=== PATIENT | male | born 1990 | race Caucasian/White ===

== ENCOUNTER 2016-05-27 20:37 | Emergency (ER) | payer OTHER ==
[~2016-05-27] VITALS: Ht 172.7 cm; Wt 131.5 kg
[~2016-05-27 20:37] MED LIST: ALBUTEROL0.09 MG/A1 INH; AUGMENTIN 875 M1 TAB PO; PREDNISONE50 MG PO
--- NOTE | 2016-05-27 21:31 | ED INFLUENZA/URI COMPLAINT ---
History of Present Illness General Chief Complaint: General Adult Stated Complaint: COUGHING ATTACK PER PT Source: patient Exam Limitations: no limitations Vital Signs & Intake/Output Vital Signs & Intake/Output Vital Signs Date Time Temp Pulse Resp B/P Pulse O2 O2 Flow FiO2 Ox Delivery Rate 05/279 98.3 97 18 136/73 96 Room Air 05/278 100 05/27 2041 97.9 110 22 152/83 98 Room Air ED Intake and Output 05/28 0000 05/27 1200 Intake Total Output Total Balance Patient 290 lb Weight Allergies Coded Allergies: NO KNOWN ALLERGIES (04/24/15) Reconcile Medications Albuterol Sulfate (Albuterol Sulfate Hfa) 0.09 MG/Actuation CEDRIC 2 PUFF INH Q4- 6 PRN PRN SHORTNESS OF BREATH 90 MCG PER PUFF Albuterol Sulfate (Ventolin Hfa) 90 MCG HFA.AER.AD 2 PUF INH Q4-6 PRN PRN wheezing Amoxicillin/Potassium Clav (Augmentin 875-125 Tablet) 875 MG-125 MG TABLET 1 TAB PO BID bronchitis Prednisone 50 MG TABLET 1 TAB PO DAILY bronchitis Triage Note: PER PT STARTED WITH COUGH YESTERDAY GET COUGHING AND VOMITS, TODAY HURTS TO BREATHE, PAIN TO BACK WHEN COUGHING Triage Nurses Notes Reviewed? yes Onset: Gradual Duration: day(s): Timing: single episode today Severity: moderate Prior Episodes/Possible Cause: occassional episodes Modifying Factors: Improves With: rest. Associated Symptoms: cough, wheezing HPI: 26-year-old gentleman, history of cigarette smoking, presents with cough for the past 23 days. He states that the cough began, along with wheeze, in the context of mild cold-like symptoms. He has no fever chills shortness of breath nausea vomiting diarrhea or chest pain. Past History Travel History Traveled to [place] past 21 day No Medical History Any Pertinent Medical History? 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 No Review of Systems Review of Systems Constitutional: Reports: no symptoms. EENTM: Reports: no symptoms. Respiratory: Reports: no symptoms. Cardiovascular: Reports: no symptoms. GI: Reports: no symptoms. Genitourinary: Reports: no symptoms. Musculoskeletal: Reports: no symptoms. Skin: Reports: no symptoms. Neurological/Psychological: Reports: no symptoms. Hematologic/Endocrine: Reports: no symptoms. Immunologic/Allergic: Reports: no symptoms. All Other Systems: Reviewed and Negative Physical Exam Physical Exam General Appearance: well developed/nourished, no apparent distress, alert, comfortable Head: atraumatic, normal appearance Eyes: Bilateral: normal appearance. Ears, Nose, Throat: normal ENT inspection, moist mucous membrane Neck: normal inspection, supple, full range of motion Respiratory: normal breath sounds, chest non-tender, no respiratory distress, quiet respiration, lungs clear Cardiovascular: edema Gastrointestinal: normal bowel sounds, soft, non-tender, no organomegaly Back: normal inspection, normal range of motion Extremities: normal inspection, normal capillary refill, normal range of motion Neurologic/Psych: no motor/sensory deficits, awake, alert, oriented x 3 Skin: intact, normal color, warm/dry Core Measures Severe Sepsis Present: No Septic Shock Present: No Progress Differential Diagnosis: otitis versus pneumonia versus viral URI Plan of Care: Current Medications Sig/Yash Start time Last Medication Dose Stop Time Status Admin Ibuprofen 800 MG ONCE ONE 05/27 2214 UNVr (Motrin) 05/28 2215 Prednisone 60 MG ONCE ONE 05/27 2214 UNVr 05/28 2215 Diagnostic Imaging: Viewed by Me: Radiology Read. Discussed w/RAD: Radiology Read. CXR Impression: no acute abnormality, no infiltrates, normal size heart, normal mediastinum Initial ED EKG: none Comments: PATIENT: DEONTE MERAZ PRESENT AGE: 26 PATIENT ACCOUNT NO: [id number] : 89 LOCATION: [facility] ORDERING PHYSICIAN: TAYLOR CALLAWAY DO (TBS) SERVICE DATE: 05/27/16 EXAM TYPE: RAD - XRY-CHEST XRAY, PA AND LATERAL EXAMINATION: XR CHEST CLINICAL INFORMATION: Cough and back pain. COMPARISON: Chest x-ray 02/27/2013. TECHNIQUE: PA and lateral views of the chest were obtained. FINDINGS: The lungs are mildly hypoinflated but clear without focal airspace consolidation. No pleural effusions or pneumothoraces are identified. Cardiomediastinal contours are within normal limits. Soft tissues are unremarkable. No acute osseous abnormality is identified. IMPRESSION: No acute pulmonary process. DICTATED BY: PARMJIT GOLDSMITH MD DATE/TIME DICTATED:05/27/162124 ENDOCRINOLOGY SPECIALIST:ROBY DATE/TIME TRANSCRIBED:05/27/162124 CONFIDENTIAL, DO NOT COPY WITHOUT APPROPRIATE AUTHORIZATION. <Electronically signed in Other Vendor System> SIGNED BY: PARMJIT GOLDSMITH MD 05/27/162128 Departure Departure Disposition: HOME OR SELF CARE Condition: Stable Clinical Impression Primary Impression: Bronchitis Referrals: RODGER WOODS,MAE Chavez (PCP/Family) Departure Forms: Customer Survey General Discharge Information Prescriptions: Current Visit Scripts Amoxicillin/Potassium Clav (Augmentin 875-125 Tablet) 1 TAB PO BID #20 TAB Prednisone 1 TAB PO DAILY #4 TAB Albuterol Sulfate (Ventolin Hfa) 2 PUF INH Q4-6 PRN PRN wheezing #1 INHAL Ref 3
[2016-05-27] MEDS ORDERED: VENTOLIN HFA18 GM INH (22:06)
[2016-05-27] MEDS ORDERED: PREDNISONE50 M1 PO (22:06)
[2016-05-27] MEDS ORDERED: AUGMENTIN 875-1 EACH PO (22:06)
[2016-05-27 22:19] VITALS: BP 136/73
== END 2016-05-27 22:19 ==
LOC: ERH 20:37
DX: J40 Bronchitis, not specified as acute or chronic (principal); Z72.0 Tobacco use

== ENCOUNTER 2017-09-04 19:36 | Emergency (ER) | payer SELFPAY ==
[~2017-09-04 19:36] MED LIST changes: +AUGMENTIN 875-1 EACH PO; +PREDNISONE50 M1 PO; +VENTOLIN HFA18 GM INH
[2017-09-04 19:40] VITALS: BP 136/83
--- NOTE | 2017-09-04 20:49 | ED EAR COMPLAINT ---
History of Present Illness General Chief Complaint: Ear Complaints Stated Complaint: "LT EAR BLOOD COMING OUT" Source: patient Exam Limitations: no limitations Vital Signs & Intake/Output Vital Signs & Intake/Output Vital Signs Date Time Temp Pulse Resp B/P B/P Pulse O2 O2 Flow FiO2 Mean Ox Delivery Rate 09/040 94 20 96 Room Air 09/05 1939 98.7 109 20 136/83 96 Room Air ED Intake and Output 09/05 0000 09/04 1200 Intake Total 0 Output Total Balance 0 Intake, Oral 0 Allergies Coded Allergies: NO KNOWN ALLERGIES (04/24/15) Reconcile Medications Albuterol Sulfate (Albuterol Sulfate Hfa) 0.09 MG/Actuation CEDRIC 2 PUFF INH Q4- 6 PRN PRN SHORTNESS OF BREATH 90 MCG PER PUFF Albuterol Sulfate (Ventolin Hfa) 90 MCG HFA.AER.AD 2 PUF INH Q4-6 PRN PRN wheezing Amoxicillin/Potassium Clav (Augmentin 875-125 Tablet) 875 MG-125 MG TABLET 1 TAB PO BID bronchitis Ciprofloxacin HCl/Dexameth (Ciprodex Otic Suspension) 0.3 %-0.1 % DROPS.SUSP 4 GTT OT BID otitis Prednisone 50 MG TABLET 1 TAB PO DAILY bronchitis Triage Note: PT TO TRIAGE C/O BLOOD/DRAINAGE FROM L EAR. PT REPORTS EAR INFECTION IN THAT EAR 1 MONTH AGO. Triage Nurses Notes Reviewed? yes Onset: Gradual Duration: week(s): Timing: recent history Injury Environment: home Severity: moderate HPI: 27yo male presents to ED complaining of bleeding from left ear beginning sunday night. BLeeding described as "bright red". Patient cleaned out his ears with hydrogen peroxide about one month ago because he was having difficulty hearing. Patient began noticing discharge from right ear after this. Patient states discharge turned brown. Patient fell down 3 days ago, he is unsure if he hit his head. Reports bright red blood from ear since the fall. The patient denies ear pain, fever, chills, sick contacts, tinnitus. (Kelsy WILEY,Rita Henderson) Past History Travel History Traveled to [place] past 21 day No Medical History Any Pertinent Medical History? none Neurological: NONE EENT: NONE Cardiovascular: NONE Respiratory: NONE Gastrointestinal: NONE Hepatic: NONE Renal: NONE Musculoskeletal: NONE Psychiatric: NONE Endocrine: NONE Blood Disorders: NONE Cancer(s): NONE GOURMET COFFEE ATTENDANT/Reproductive: NONE Surgical History Surgical History: N Psychosocial History What is your primary language Serbian Tobacco Use: Current Daily Use Daily Tobacco Use Amount/Type: =< 4 Cigarettes daily ETOH Use: occasional use Family History Hx Contributory? No (Rita De Santiago) Review of Systems Review of Systems Constitutional: Reports: no symptoms. EENTM: Reports: see HPI. Respiratory: Reports: no symptoms. Cardiovascular: Reports: no symptoms. GI: Reports: no symptoms. Genitourinary: Reports: no symptoms. Musculoskeletal: Reports: no symptoms. Skin: Reports: no symptoms. Neurological/Psychological: Reports: no symptoms. Hematologic/Endocrine: Reports: no symptoms. Immunologic/Allergic: Reports: no symptoms. All Other Systems: Reviewed and Negative (Rita De Santiago) Physical Exam Physical Exam General Appearance: well developed/nourished, no apparent distress, alert, awake Head: atraumatic, normal appearance Eyes: Bilateral: normal appearance. Ears: Left: other (white debris, TM obscured). Right: canal normal, Tympanic normal. Nose: normal inspection Mouth/Throat: normal mouth inspection Neck: normal inspection, supple, full range of motion Cardiovascular/Respiratory: no respiratory distress Back: normal inspection, normal range of motion Neurologic/Psych: awake, alert, oriented x 3 Skin: intact, normal color, warm/dry (Rita De Santiago) Progress Differential Diagnoses I considered the following diagnoses in my evaluation of the patient: [otitis media, otitis externa, TM perforation, ear injury/trauma] Plan of Care: Patient has no tenderness of the ear on physical exam. There is white recent ear canal which is obscuring tympanic membrane, possible abnormality of the tympanic membrane given red/brown discharge. Patient given ear drops for possible otitis externa and follow-up with ENT for further evaluation of tympanic membrane perforation. Patient informed that his ear could not be fully visualized in the emergency department requiring necessity of ENT follow-up. The patient agrees with the plan of care. The patient was discussed with Dr. Haney who agrees with this plan. Initial ED EKG: none (Rita De Santiago) Departure Departure Disposition: HOME OR SELF CARE Condition: Stable Clinical Impression Primary Impression: Discharge of ear Qualifiers: Laterality: left Qualified Code: H92.12 - Otorrhea, left ear Referrals: Mora WOODS,Rosendo Chavez (PCP/Family) Additional Instructions: Use ear drop as prescribes until you follow up with ENT specialist. Departure Forms: Customer Survey General Discharge Information Prescriptions: Current Visit Scripts Ciprofloxacin HCl/Dexameth (Ciprodex Otic Suspension) 4 GTT OT BID #1 BOT (Kelsy WILEY,Rita Henderson) PA/WEIGH AND CHARGE WORKER Co-Sign Statement Statement: ED Attending supervision documentation- [] I saw and evaluated the patient. I have also reviewed all the pertinent lab results and diagnostic results. I agree with the findings and the plan of care as documented in the PA's/WEIGH AND CHARGE WORKER's documentation. [X] I have reviewed the ED Record and agree with the PA's/WEIGH AND CHARGE WORKER's documentation. [] Additions or exceptions (if any) to the PAs/WEIGH AND CHARGE WORKER's note and plan are summarized below: [] (Lyndon WOODS,Mark Ag)
[2017-09-04] MEDS ORDERED: CIPRODEX OTIC7.5 ML OT (21:15)
== END 2017-09-04 21:21 ==
LOC: ERH 19:36
DX: H92.12 Otorrhea, left ear (principal)